=== PATIENT | male | born 1975 | race Asian ===

== ENCOUNTER 2017-04-15 10:26 | Emergency (ER) | payer BC ==
[~2017-04-15] VITALS: Ht 447 cm; Wt 84.0 kg
[2017-04-15] MEDS ORDERED: AMOXICILLIN875 MG PO (12:08)
[2017-04-15 12:19] VITALS: BP 145/80
== END 2017-04-15 12:21 | disposition home or self-care (01) ==
LOC: EME 10:26
DX: K04.7 Periapical abscess without sinus (principal)
CPT/HCPCS: 99281; 99282

== ENCOUNTER 2017-09-04 23:02 | Emergency (ER) | payer BC ==
[~2017-09-04] VITALS: Ht 175.3 cm; Wt 82.3 kg
[~2017-09-04 23:02] MED LIST: AMOXICILLIN875 MG PO
[2017-09-05] MEDS ORDERED: KENALOG,ARISTOC80 G1 TP (00:42)
[2017-09-05] MEDS ORDERED: PREDNISONE20 MG PO (00:42)
[2017-09-05] MEDS ORDERED: BENADRYL50 MG PO (00:42)
[2017-09-05 01:02] VITALS: BP 123/78
== END 2017-09-05 01:03 | disposition home or self-care (01) ==
LOC: EME 23:02
DX: L25.9 Unspecified contact dermatitis, unspecified cause (principal); Z86.79 Personal history of other diseases of the circulatory system
CPT/HCPCS: 99281; 99284; J7512